=== PATIENT | male | born 2000 | race Caucasian/White ===

== ENCOUNTER 2023-11-03 20:59 | Emergency (ER) | payer OTHER ==
[~2023-11-03] VITALS: Ht 180.3 cm; Wt 100.0 kg
[2023-11-03] MEDS: SODIUM CHLORIDE 0.9% 1,000 ML IV ONE (21:08)
[2023-11-03 21:27] LABS: Eosinophils # (auto) 0.1 10 ^3/uL (0-0.8); Hemoglobin 15.2 g/dL (13.5-17.5); Monocytes # (auto) 1.3 10 ^3/uL (0-1.3); Neutrophils % (auto) 71.6 % (37.0-80.0)
[2023-11-03 21:29] LABS: Basophils # (auto) 0 10 ^3/uL (0-0.2); Basophils % (auto) 0.5 % (0.0-2.0); Chloride 106 mmol/L (98-107); Eosinophils % (auto) 0.7 % (0.0-7.0); Lymphocytes # (auto) 1.3 10 ^3/uL (0.4-5.4); Lymphocytes % (auto) 13.4 % (10.0-50.0); Mean Corpuscular Hemoglobin 26.3 pg (28.0-32.0); Mean Corpuscular Hgb Conc. 33.8 g/dL (32.0-36.0); Monocytes % (auto) 13.8 % (0.0-12.0); Neutrophils # (auto) 6.8 10 ^3/uL (1.6-8.6); Potassium 3.7 mmol/L (3.5-5.1); Red Blood Cells 5.77 10^6/uL (4.5-5.90); Red Cell Distribution Width 13.3 % (11.8-14.3); Sodium 139 mmol/L (136-145); White Blood Cell 9.5 10^3/uL (4.4-10.8)
[2023-11-03 21:30] LABS: Anion Gap 6 (5-15); Calcium 9.8 mg/dL (8.5-10.1); Carbon Dioxide 27 mmol/L (20-30)
[2023-11-03 21:35] LABS: BUN/Creatinine Ratio 8.4 (10.0-20.0); Blood Urea Nitrogen 10 mg/dL (9-23); Glucose 92 mg/dL (74-106)
[2023-11-03] MEDS: KETOROLAC TROMETH 60MG/2ML VIAL IM ONE (23:20)
[2023-11-03] MEDS: ACETAMINOPHEN 500 MG TAB PO ONE (23:21)
[2023-11-03 23:25] VITALS: BP 143/76; PULSE 93; RESP 19; O2SAT 96
[2023-11-03 23:37] LABS: Urine Bacteria None Seen /hpf (None Seen)
[2023-11-03 23:42] LABS: Urine Blood Negative /uL (Negative); Urine Clarity Clear (Clear); Urine Color Colorless (Yellow); Urine Protein, UAD Negative (Negative); Urine Specific Gravity 1.009 (1.001-1.035); Urine Urobilinogen Normal (Negative); Urine WBC <1 /hpf (0 - 3); Urine pH 5.5 (5.0-9.0)
[2023-11-03 23:55] LABS: Amphetamine Screen, Urine Neg (NEGATIVE); Barbiturate Scree,Urine Neg (NEGATIVE); Benzodiazephine Screen, Urine Neg (NEGATIVE); Cannabinoid Screen, Urine Neg (NEGATIVE); Cocaine Screen, Urine Neg (NEGATIVE); Opiate Scree,Urine Neg (NEGATIVE); Phencyclidine Screen, Urine Neg (NEGATIVE)
[2023-11-04 00:21] VITALS: TEMP 99.4
== END 2023-11-04 00:55 | disposition home or self-care (01) ==
LOC: ER 20:59 → EDBD 20:59 → ER 11-04 00:54
DX: R00.2 Palpitations (principal); F19.90 Other psychoactive substance use, unspecified, uncomplicated
CPT/HCPCS: 36415; 80048; 80307; 81001; 83690; 84484; 85025; 93005; 96360; 96372; 99284; J1885; J7030